=== PATIENT | female | born 1965 | race Caucasian/White ===

== ENCOUNTER 2016-03-26 04:18 | Emergency (ER) | payer OTHER ==
[~2016-03-26 04:18] MED LIST: BENADRYL25 MG PO; ONDANSETRON ODT4 MG PO; PERCOCET1 TA4 PO; PRILOSEC OTC20 MG; XANAX0.25 MG
--- NOTE | 2016-03-26 06:14 | ED NURSING NOTES ---
Clinical Report - Nurses [facility] [address] [place] [address] 03/26/2016 4:21 Patient: SARINA RASHID TRIAGE Triage time 0427. Chief Complaint: COUGH, SORE THROAT and BODY ACHES and SINUS DRAINAGE, SINUS CONGESTION and RUNNY NOSE. --04:34 Zak Rueda R.N. 04:27 03/26/16. BP: 140/100. HR: 90. RR: 20. O2 saturation: 98%. Temp: 98.4 F. Pain level now 07/29. --04:34 Zak Rueda R.N. Weight: 90.7 kg stated. Height/Length: 64 inches Per Patient. BMI: 34.3. --04:32 Zak Rueda R.N. Medications OxyCODONE HCl Oral. --04:31 Zak Rueda R.N. Gemfibrozil Oral. --04:31 Zak Rueda R.N. Amitriptyline HCl Oral. --04:31 Zak Rueda R.N. Albuterol Sulfate Inhalation. --04:31 Zak Rueda R.N. Allergies Aspirin. --04:32 Zak Rueda R.N. Penicillins. --04:32 Zak Rueda R.N. Keflex. --04:32 Zak Rueda R.N. History Arrived by private vehicle. Historian: patient. Onset. (2 weeks). She has had chest congestion. Treatment HOUSESMITH: (oskar, chris blake, armando). SOCIAL HX: Occasional alcohol use; consumes beer weekly. FALL RISK ASSESSMENT: Fall risk assessment completed. No fall risk identified. NUTRITIONAL RISK ASSESSMENT: The nutritional risk assessment revealed no deficiencies. FUNCTIONAL ASSESSMENT: Functional assessment: no impairments noted. LEARNING NEEDS ASSESSMENT: The learning needs assessment revealed no barriers. SKIN INTEGRITY ASSESSMENT: Skin integrity risk assessment completed. No skin integrity risk identified. --04:34 Zak Rueda R.N. PAST MEDICAL HX: ( pt states she was seen last week at [facility], [place] and was given zpack script. she took all of it without relief). --04:37 Zak Rueda R.N. PROBLEMS: Lumbar Radiculopathy. Gastritis. Chest Pain of GI Origin. Atypical Chest Pain. Lower Extremity Pain. Rectal Bleed. Lumbar Strain. URI. Contusion. Contact Dermatitis. Fall. Chest Wall Pain. Deep venous thrombosis of lower extremity. Diverticulitis. Abdominal Pain. Puncture Wound. Immunizations. Sprain. Foot Fracture. Prior Injury, Same Area. Bronchitis. Sinusitis. LNMP - Last Normal Menstrual Period. Lung Disease. Viral Disease. Asthma. Wound Infection. Hypertension. Tetanus Status. --04:32 Zak Rueda R.N. ADDITIONAL SURGERIES: Carpal Tunnel Surgery. Foot surgery right side. Hysterectomy. Right Foot surgery. --04:32 Zak Rueda R.N. PHYSICAL ASSESSMENT GENERAL / NEURO / PSYCH: Alert. Oriented X 4. Appears in no acute distress. HEENT: Pupils equal, round and reactive to light. Mucous membranes are pink. RESPIRATORY: Mild respiratory distress. Nonproductive cough. CVS: Capillary refill less than 2 seconds. Pulses within normal limits. SKIN: Skin intact. Skin is warm and dry. Normal skin turgor. --04:35 Zak Rueda R.N. Ambulatory to room. --04:35 Zak Rueda R.N. NURSING PROGRESS NOTES Head of bed elevated. Reassurance given. Patient identifiers checked. Call light placed in reach. Bed placed in lowest position. Brakes of bed on. --04:35 Zak Rueda R.N. DISPOSITION / DISCHARGE Departure time: 517. The patient left the Emergency Department without being seen by a physician; patient was accompanied by spouse. The patient appears to be alert, oriented x4, coherent and in no acute distress. The patient notified the ED staff prior to leaving the department and stated is leaving the ED due to the long waiting time and to go to their primary care physician. Notified the ED physician and charge nurse of patient departure. Prior to leaving the ED, she was advised to stay for completion of treatment and return if needed. She was informed of the risks of leaving and verbalized understanding of these risks. Patient signed form prior to leaving. She left the Emergency Department ambulatory and via private vehicle. --05:19 Zak Rueda R.N. Locked/Released at 03/26/2016 5:21 by Zak Rueda R.N.
--- NOTE | 2016-03-26 06:14 | ED MAR SUMMARY ---
..... Medication Administration Record [facility] [address] [place], [place] [id number] Patient: SARINA RASHID Visit ID: [id number] 50y, F Weight: 90.7 kg Height/Length: 64 in BMI: 34.3 ALLERGIES: Keflex, Penicillins, Aspirin
--- NOTE | 2016-03-26 06:14 | ED MED RECONCILIATION SUMMARY ---
Patient: SARINA RASHID Medication Reconciliation Report [facility] VisitID: [id number] [address] [place] [address] 50y, F Registration Date/Time: 03/26/2016 Weight: 90.7 kg Height/Length: 64 in. BMI: 34.3 ALLERGIES: Aspirin, Keflex, Penicillins The patient's Home Medications are listed below: THE FOLLOWING MEDICATIONS NEED TO BE RECONCILED: Albuterol Sulfate Inhalation Amitriptyline HCl Oral Gemfibrozil Oral OxyCODONE HCl Oral The source(s) of the original Home Medication information: Not obtained. The following Medications were given to the patient in the Emergency Department: None. The following Medications were prescribed to the patient: None.
--- NOTE | 2016-03-26 06:14 | ED MAR SUMMARY ---
..... Medication Administration Record [facility] [address], [place] [id number] Patient: SARINA RASHID Visit ID: [id number] 50y, F Weight: 90.7 kg Height/Length: 64 in BMI: 34.3 ALLERGIES: Keflex, Penicillins, Aspirin
--- NOTE | 2016-03-26 06:14 | ED CLINICAL REPORT ---
Clinical Report - Physicians/Mid Levels [facility] [address] [place] [address] 03/26/2016 4:21 Patient: SARINA RASHID Time Seen: 04:49. Arrived- By private vehicle. Historian- patient. PROGRESS AND PROCEDURES Course of Care: Pt not seen by me--venkat. (Electronically signed by Michelle Caldwell MD 03/26/2016 6:14)
--- NOTE | 2016-03-26 06:14 | ED MED RECONCILIATION SUMMARY ---
Patient: SARINA RASHID Medication Reconciliation Report [facility] VisitID: [id number] [address] [place] [place] [address] 50y, F Registration Date/Time: 03/26/2016 Weight: 90.7 kg Height/Length: 64 in. BMI: 34.3 ALLERGIES: Aspirin, Keflex, Penicillins The patient's Home Medications are listed below: THE FOLLOWING MEDICATIONS NEED TO BE RECONCILED: Albuterol Sulfate Inhalation Amitriptyline HCl Oral Gemfibrozil Oral OxyCODONE HCl Oral The source(s) of the original Home Medication information: Not obtained. The following Medications were given to the patient in the Emergency Department: None. The following Medications were prescribed to the patient: None.
--- NOTE | 2016-03-26 06:14 | ED CLINICAL REPORT ---
Clinical Report - Physicians/Mid Levels [facility] [address] [place] [address] 03/26/2016 4:21 Patient: SARINA RASHID Time Seen: 04:49. Arrived- By private vehicle. Historian- patient. PROGRESS AND PROCEDURES Course of Care: Pt not seen by me--venkat. (Electronically signed by Michelle Caldwell MD 03/26/2016 6:14)
--- NOTE | 2016-03-26 06:14 | ED NURSING NOTES ---
Clinical Report - Nurses [facility] [address] [place] [address] 03/26/2016 4:21 Patient: SARINA RASHID TRIAGE Triage time 0427. Chief Complaint: COUGH, SORE THROAT and BODY ACHES and SINUS DRAINAGE, SINUS CONGESTION and RUNNY NOSE. --04:34 Zak Rueda R.N. 04:27 03/26/16. BP: 140/100. HR: 90. RR: 20. O2 saturation: 98%. Temp: 98.4 F. Pain level now 07/29. --04:34 Zak Rueda R.N. Weight: 90.7 kg stated. Height/Length: 64 inches Per Patient. BMI: 34.3. --04:32 Zak Rueda R.N. Medications OxyCODONE HCl Oral. --04:31 Zak Rueda R.N. Gemfibrozil Oral. --04:31 Zak Rueda R.N. Amitriptyline HCl Oral. --04:31 Zak Rueda R.N. Albuterol Sulfate Inhalation. --04:31 Zak Rueda R.N. Allergies Aspirin. --04:32 Zak Rueda R.N. Penicillins. --04:32 Zak Rueda R.N. Keflex. --04:32 Zak Rueda R.N. History Arrived by private vehicle. Historian: patient. Onset. (2 weeks). She has had chest congestion. Treatment STATISTICAL MODELER: (oskar, chris blake, armando). SOCIAL HX: Occasional alcohol use; consumes beer weekly. FALL RISK ASSESSMENT: Fall risk assessment completed. No fall risk identified. NUTRITIONAL RISK ASSESSMENT: The nutritional risk assessment revealed no deficiencies. FUNCTIONAL ASSESSMENT: Functional assessment: no impairments noted. LEARNING NEEDS ASSESSMENT: The learning needs assessment revealed no barriers. SKIN INTEGRITY ASSESSMENT: Skin integrity risk assessment completed. No skin integrity risk identified. --04:34 Zak Rueda R.N. PAST MEDICAL HX: ( pt states she was seen last week at [facility] and was given zpack script. she took all of it without relief). --04:37 Zak Rueda R.N. PROBLEMS: Lumbar Radiculopathy. Gastritis. Chest Pain of GI Origin. Atypical Chest Pain. Lower Extremity Pain. Rectal Bleed. Lumbar Strain. URI. Contusion. Contact Dermatitis. Fall. Chest Wall Pain. Deep venous thrombosis of lower extremity. Diverticulitis. Abdominal Pain. Puncture Wound. Immunizations. Sprain. Foot Fracture. Prior Injury, Same Area. Bronchitis. Sinusitis. LNMP - Last Normal Menstrual Period. Lung Disease. Viral Disease. Asthma. Wound Infection. Hypertension. Tetanus Status. --04:32 Zak Rueda R.N. ADDITIONAL SURGERIES: Carpal Tunnel Surgery. Foot surgery right side. Hysterectomy. Right Foot surgery. --04:32 Zak Rueda R.N. PHYSICAL ASSESSMENT GENERAL / NEURO / PSYCH: Alert. Oriented X 4. Appears in no acute distress. HEENT: Pupils equal, round and reactive to light. Mucous membranes are pink. RESPIRATORY: Mild respiratory distress. Nonproductive cough. CVS: Capillary refill less than 2 seconds. Pulses within normal limits. SKIN: Skin intact. Skin is warm and dry. Normal skin turgor. --04:35 Zak Rueda R.N. Ambulatory to room. --04:35 Zak Rueda R.N. NURSING PROGRESS NOTES Head of bed elevated. Reassurance given. Patient identifiers checked. Call light placed in reach. Bed placed in lowest position. Brakes of bed on. --04:35 Zak Rueda R.N. DISPOSITION / DISCHARGE Departure time: 517. The patient left the Emergency Department without being seen by a physician; patient was accompanied by spouse. The patient appears to be alert, oriented x4, coherent and in no acute distress. The patient notified the ED staff prior to leaving the department and stated is leaving the ED due to the long waiting time and to go to their primary care physician. Notified the ED physician and charge nurse of patient departure. Prior to leaving the ED, she was advised to stay for completion of treatment and return if needed. She was informed of the risks of leaving and verbalized understanding of these risks. Patient signed form prior to leaving. She left the Emergency Department ambulatory and via private vehicle. --05:19 Zak Rueda R.N. Locked/Released at 03/26/2016 5:21 by Zak Rueda R.N.
== END 2016-03-26 05:12 | disposition left against medical advice (07) ==
LOC: ED SRH 04:18
DX: Z53.21 Procedure and treatment not carried out due to patient leaving prior to being seen by health care provider (principal)